=== PATIENT | female | born 1955 | race Hispanic/Latino ===

== ENCOUNTER 2018-09-11 18:07 | Emergency (ER) | payer OTHER ==
[~2018-09-11 18:07] MED LIST: LEVO500T2 PO; OMEP20CA10 PO
[2018-09-11 18:44] LABS: APPEARANCE,URINE Clear (CLEAR); BILIRUBIN,URINE Moderate (NEGATIVE); COLOR,URINE Dark Yellow (YELLOW); GLUCOSE, URINE (UA) Negative (NEGATIVE); KETONES,URINE 40 mg/dL (NEGATIVE); LEUKOCYTE ESTERASE ,URINE Moderate (NEGATIVE); NITRATE,URINE Negative (NEGATIVE); OCCULT BLOOD,URINE Negative (NEGATIVE); PROTEIN,URINE POS 1+ mg/dL (NEGATIVE)
[2018-09-11 18:57] LABS: BASOPHILS % (AUTO) 0.5 % (0.0-5.0); EOSINOPHILS % (AUTO) 1.6 % (0.0-8.0); HEMATOCRIT 34.1 % (36-48); LYMPHOCYTES % (AUTO) 23.3 % (21.0-51.0); MEAN CORPUSCULAR HEMOGLOBIN 42.8 pg (27.0-33.0); MEAN CORPUSCULAR HGB CONC 34.9 g/dL (32.0-36.0); MEAN CORPUSCULAR VOLUME 122.7 fL (79-99); MONOCYTES % (AUTO) 1.8 % (3.0-13.0); NEUTROPHILS % (AUTO) 72.8 % (40.0-77.0); NUCLEATED RED BLOOD CELLS 0.1 % (0.0-0.19); PLATELET COUNT (AUTO) 97 K/uL (130-400); RED BLOOD CELL COUNT(AUTO) 2.78 MIL/uL (4.00-5.50); WHITE BLOOD COUNT (AUTO) 5.8 K/uL (4.8-10.8)
[2018-09-11] MEDS ORDERED: ONDANSETRON HCL 4 MG/2 ML VIAL ONE (19:06)
[2018-09-11] MEDS ORDERED: SODIUM CHLORIDE 0.9% 1000ML 1,000 ML IV ONE (19:06)
[2018-09-11 19:08] LABS: CREATININE 0.7 mg/dL (0.5-1.5); POTASSIUM 3.6 mmol/L (3.5-5.1)
[2018-09-11 19:13] LABS: ALBUMIN 3.7 g/dL (3.5-5.0); BILIRUBIN,TOTAL 0.7 mg/dL (0.2-1.0); TOTAL PROTEIN, SERUM 7.8 g/dL (6.0-8.3)
[2018-09-11 19:16] LABS: BACTERIA,URINE Rare /HPF (None Seen); MUCUS,URINE Many LPF (None Seen); RBC,URINE None Seen /HPF (0-1); WBC,URINE 26-50 /HPF (0-1)
[2018-09-11 20:01] LABS: PLATELET MORPHOLOGY COMMENT SLIGHTLY DECREASED
[2018-09-11] MEDS ORDERED: LEVOFLOXACIN 500 MG TABLET ONE (20:39)
== END 2018-09-11 21:02 | disposition home or self-care (01) ==
LOC: EDH 18:07
DX: K52.9 Noninfective gastroenteritis and colitis, unspecified (principal); N39.0 Urinary tract infection, site not specified; D69.6 Thrombocytopenia, unspecified; M54.2 Cervicalgia
CPT/HCPCS: 36415; 72040; 80053; 81001; 82150; 82550; 83690; 84484; 85025; 87088; 87804 ×2; 93005; 96361; 96374; 99285; J2405; J7030

== ENCOUNTER 2018-12-18 02:56 | Inpatient (IN) | payer SELFPAY ==
[2018-12-18] VITALS (15 sets, daily range): BP systolic 103–143; BP diastolic 53–74
[~2018-12-18] VITALS: Ht 152.4 cm; Wt 76.1 kg
[~2018-12-18 02:56] MED LIST changes: +OMEP-50 PO; -OMEP20CA10 PO
[2018-12-18] MEDS ORDERED: ASPIRIN 325 MG TABLET ONE (03:31)
[2018-12-18 03:38] LABS: APPEARANCE,URINE Clear (CLEAR); BILIRUBIN,URINE Negative (NEGATIVE); COLOR,URINE Yellow (YELLOW); GLUCOSE, URINE (UA) Negative (NEGATIVE); KETONES,URINE 15 mg/dL (NEGATIVE); LEUKOCYTE ESTERASE ,URINE Small (NEGATIVE); NITRATE,URINE Positive (NEGATIVE); OCCULT BLOOD,URINE Negative (NEGATIVE); PH,URINE >=9.0 (5.0-8.0); PROTEIN,URINE Negative (NEGATIVE)
[2018-12-18 03:44] LABS: BACTERIA,URINE Many /HPF (None Seen); MUCUS,URINE None Seen LPF (None Seen); RBC,URINE 0-1 /HPF (0-1); SQUAMOUS EPITHELIAL CELL,UR None Seen /HPF (0-2)
[2018-12-18] MEDS ORDERED: ONDANSETRON HCL 4 MG/2 ML VIAL ONE (04:00)
[2018-12-18 04:10] LABS: CREATININE 0.8 mg/dL (0.5-1.5); POTASSIUM 3.4 mmol/L (3.5-5.1)
[2018-12-18 04:15] LABS: BILIRUBIN,TOTAL 1.6 mg/dL (0.2-1.0); TOTAL PROTEIN, SERUM 7.3 g/dL (6.0-8.3)
[2018-12-18 04:16] LABS: INR 1.02 (0.85-1.15); PARTIAL THROMBOPLASTIN TIME 24.6 SEC (26.3-35.5); PROTHROMBIN TIME 10.7 SEC (9.6-11.6)
[2018-12-18 04:19] LABS: B-TYPE NATRIURETIC PEPTIDE 44 pg/mL (0-100)
[2018-12-18 04:23] LABS: BASOPHILS % (AUTO) 0.2 % (0.0-5.0); EOSINOPHILS % (AUTO) 2.9 % (0.0-8.0); HEMATOCRIT 23.2 % (36-48); LYMPHOCYTES % (AUTO) 43.5 % (21.0-51.0); MEAN CORPUSCULAR HEMOGLOBIN 43.6 pg (27.0-33.0); MEAN CORPUSCULAR HGB CONC 34.1 g/dL (32.0-36.0); MEAN CORPUSCULAR VOLUME 127.7 fL (79-99); MONOCYTES % (AUTO) 3.3 % (3.0-13.0); NEUTROPHILS % (AUTO) 50.1 % (40.0-77.0); NUCLEATED RED BLOOD CELLS 0.1 % (0.0-0.19); PLATELET COUNT (AUTO) 148 K/uL (130-400); RED BLOOD CELL COUNT(AUTO) 1.82 MIL/uL (4.00-5.50); WHITE BLOOD COUNT (AUTO) 6.3 K/uL (4.8-10.8)
[2018-12-18] MEDS ORDERED: CEFTRIAXONE SODIUM 1 GM ONE (04:34)
[2018-12-18] MEDS ORDERED: SODIUM CHLORIDE 0.9% 100 ML IV ONE (04:35)
[2018-12-18 04:39] LABS: RETICULOCYTE % (AUTO) 2.63 % (0.42-2.23)
[2018-12-18] MEDS ORDERED: ONDANSETRON HCL 4 MG/2 ML VIAL IV PRN (05:00)
[2018-12-18] MEDS ORDERED: ACETAMINOPHEN 325 MG TAB PO PRN ×2 (05:00)
[2018-12-18] MEDS: CEFTRIAXONE SODIUM 1 GM IVP SCH (05:00)
[2018-12-18] MEDS ORDERED: POTASSIUM CHLORIDE 10MEQ/100ML 100 ML IV PRN (05:00)
[2018-12-18] MEDS ORDERED: LACTULOSE 20 GM/30 ML UDCUP PO PRN (05:00)
[2018-12-18] MEDS: DEXTROSE 5%-WATER 1,000 ML IV SCH ×2 (05:00→18:08)
[2018-12-18 05:22] LABS: CHOLESTEROL 120 mg/dL (<200); HDL CHOLESTEROL 38 mg/dL (35-85); LDL DIRECT 69 mg/dL (0-99); TRIGLYCERIDES 101 mg/dL (30-200)
[2018-12-18 05:25] LABS: FERRITIN 213 ng/mL (15-150); HEMOGLOBIN A1C 5.6 % (4.0-6.0); IRON, SERUM 71 mcg/dL (50-170)
[2018-12-18] MEDS: ASPIRIN 81MG TAB.CHEW PO SCH (09:00)
[2018-12-18 11:08] LABS: CREATINE KINASE, TOTAL 30 U/L (21-232); MYOGLOBIN 30 ng/mL (10-92); TROPONIN I < 0.04 ng/mL (0.00-0.06)
[2018-12-18] MEDS ORDERED: ERYTHROMYCIN LACTOBIONATE 250 MG in SODIUM CHLORIDE 0.9% 100 ML IV SCH (12:00)
[2018-12-18] MEDS: MORPHINE SULFATE 2 MG/ML 1ML SYG IV PRN (13:00)
--- NOTE | 2018-12-18 13:30 | NUR ---
NOTE OUT OF ROOM FOR EGD AT THIS TIME.
[2018-12-18] MEDS ORDERED: PROPOFOL 10 MG/ML 20ML VIAL IV ONE (14:17)
[2018-12-18] MEDS: METOPROLOL TARTRATE 25 MG TAB PO SCH ×2 (16:05→19:52)
[2018-12-18] MEDS: FAMOTIDINE/PF 20 MG/2 ML VIAL IV SCH ×2 (16:05→19:41)
[2018-12-18] MEDS ORDERED: LACTULOSE 20 GM/30 ML UDCUP PO SCH (16:30)
[2018-12-18] MEDS ORDERED: MAGNESIUM CITRATE 296 ML SOLUTION PO SCH (16:30)
[2018-12-18 16:43] LABS: CREATINE KINASE, TOTAL 29 U/L (21-232); MYOGLOBIN 31 ng/mL (10-92); TROPONIN I < 0.04 ng/mL (0.00-0.06)
[2018-12-18] MEDS ORDERED: PEG 3350/NA SULF,BICARB,CL/KCL 4000 ML SOLN PO SCH (17:00)
--- NOTE | 2018-12-18 18:30 | NUR ---
NOTE CAME BACK FROM PROCEDURE EARLIER AND HAS REMAINED STABLE ADN WITHOUT DISTRESS OR PAIN. WAS MEDICATED WITH MORPHINE PRIOR TO LEAVING FOR EGD. FAMILY IS AT HER SIDE. WAS STARTED ON PREP FOR COLONOSCOPY IN AM. WE HAVE CALLED DR JONES A CONSULT FOR POSSIBLE SURGERY. JUST SPOKE TO HIM AND HE WILL BE HERE IN AM TO SEE HER. WILL KEEP HER NPO EVEN AFTER SHE COMES BACK FROM COLONOSCOPY SHE IS SCHEDULED FOR.
[2018-12-18] MEDS: ATORVASTATIN CALCIUM 20 MG TABLET PO SCH (19:52)
--- NOTE | 2018-12-18 20:00 | NUR ---
ASSESSMENT BOWEL PREP PATIENT DRINKING [place] PREP SLOWLY, ENCOURAGE PATIENT AND FAMILY TO DRINK BOWEL PREP IN ORDER TO BE READY , IF NOT CLEAR COLONOSCOPY WILL NOT BE PERFORMED, PATIENT AND FAMILY VERBALIZE UNDERSTANDING VIA TEACH BACK
--- NOTE | 2018-12-18 21:05 | NUR ---
ENEMA TAP WATER ENEMA GIVEN ORDERED, TOLERATED WELL, RETURN WATER BROWNISH STOOL WITH BROWN STOOL PARTICLES
[2018-12-18 22:47] LABS: CREATINE KINASE, TOTAL 31 U/L (21-232); MYOGLOBIN 33 ng/mL (10-92); TROPONIN I < 0.04 ng/mL (0.00-0.06)
[2018-12-19 04:00] VITALS: BP 111/55
--- NOTE | 2018-12-19 04:55 | NUR ---
REFUSAL PATIENT REFUSING ENEMA, PATIENT REFUSING COLONOSCOPY FOR TODAY, EXPLAINED TO PATIENT IMPORTANCE, CONTINUE TO REFUSE ENEMA AND COLONOSCOPY, REFUSAL OBTAINED AND SIGNED
[2018-12-19 05:42] LABS: MEAN CORPUSCULAR HEMOGLOBIN 45.5 pg (27.0-33.0); MEAN CORPUSCULAR HGB CONC 35.2 g/dL (32.0-36.0); MEAN CORPUSCULAR VOLUME 129.3 fL (79-99); NUCLEATED RED BLOOD CELLS 0.1 % (0.0-0.19); PLATELET COUNT (AUTO) 87 K/uL (130-400); RED BLOOD CELL COUNT(AUTO) 1.56 MIL/uL (4.00-5.50); RED CELL DISTRIBUTION WIDTH 22.8 % (11.0-15.5); WHITE BLOOD COUNT (AUTO) 7.3 K/uL (4.8-10.8)
[2018-12-19 05:46] LABS: CREATININE 0.7 mg/dL (0.5-1.5); POTASSIUM 3.5 mmol/L (3.5-5.1)
[2018-12-19 05:48] LABS: HEMATOCRIT 20.2 % (36-48)
[2018-12-19] MEDS: CEFTRIAXONE SODIUM 1 GM IVP SCH (05:51)
[2018-12-19 06:03] LABS: EOSINOPHILS % (MANUAL) 1 % (1-6); LYMPHOCYTES % (MANUAL) 28 % (22-44); MAN.DIFF COMMENT-IMPRESSION MANUAL DIFFERENTIAL; MONOCYTES % (MANUAL) 3 % (2-9); SEGMENTED NEUTROPHILS % 68 % (40-70)
[2018-12-19 06:05] LABS: PLATELET MORPHOLOGY COMMENT DECREASED
--- NOTE | 2018-12-19 06:30 | NUR ---
REFUSAL MD INFORMED DR. QUIJANO PATIENT REFUSES COLONOSCOPY AND REFUSAL SIGN
[2018-12-19] MEDS: DEXTROSE 5%-WATER 1,000 ML IV SCH ×2 (07:40→22:32)
--- NOTE | 2018-12-19 07:45 | NUR ---
NOTE AAOX3. DENIES PAIN OR DISCOMFORT AT THIS TIME. NO SOB OR DISTRESS NOTED OR REPORTED. REMAINS NPO. SHE WILL HAVE HIDA SCAN DONE TODAY. SHE REFUSED TO COMPLETE PREP FOR COLONOSCOPY SCHEDULED FOR TODAY SO NIGHT NURSE CALLED DR QUIJANO AND INFORMED HIM. HGB 7.1 THIS AM.
[2018-12-19] MEDS ORDERED: LORAZEPAM 2 MG/ML 1 ML VIAL IM SCH (08:15)
[2018-12-19] MEDS ORDERED: MAGNESIUM 2GM PREMIX 50ML 50 ML IV PRN (08:15)
[2018-12-19 08:26] VITALS: BP 105/58
[2018-12-19 08:57] LABS: HEMOGLOBIN A1C 5.5 % (4.0-6.0)
[2018-12-19] MEDS ORDERED: PANTOPRAZOLE SODIUM 40 MG TABLET.DR PO SCH (09:00)
[2018-12-19] MEDS: CYANOCOBALAMIN (VITAMIN B-12) 1000 MCG/ML 1ML VIAL IM SCH (09:00)
[2018-12-19] MEDS ORDERED: CYANOCOBALAMIN (VITAMIN B-12) 1000 MCG/ML 1ML VIAL IM SCH (09:00)
[2018-12-19] MEDS: ASPIRIN 81MG TAB.CHEW PO SCH (09:00)
[2018-12-19 09:04] LABS: ALBUMIN 3.3 g/dL (3.5-5.0); BILIRUBIN,TOTAL 2.7 mg/dL (0.2-1.0); CREATININE 0.7 mg/dL (0.5-1.5); POTASSIUM 4.4 mmol/L (3.5-5.1); TOTAL PROTEIN, SERUM 6.6 g/dL (6.0-8.3)
[2018-12-19] MEDS: METOPROLOL TARTRATE 25 MG TAB PO SCH ×2 (09:38→21:00)
[2018-12-19] MEDS: FOLIC ACID 1 MG TABLET PO SCH (09:38)
--- NOTE | 2018-12-19 10:15 | NUR ---
NOTE DR JONES CAME IN AND SPOKE TO PATIENT. HE WAS UNDER IMPRESSION THAT PATIENT WAS HAVING COLONOSCOPY TODAY BUT I INFORMED HIM THAT SHE HAD REFUSED TO COMPLETE THE PREP SO IT HAD BEEN CANCELLED. DR JONES TOLD ME TO INFORM THE PATIENT THAT WITHOUT KNOWING WHERE BLEEDING OR LOSS OF BLOOD IS COMING FROM HE WOULD NOT DO SURGERY ON HER.
--- NOTE | 2018-12-19 11:00 | NUR ---
NOTE INFORMED PATIENT AND FAMILY THAT WAS PRESENT ABOUT WHAT DR JONES HAD SAID ABOUT NOT DOING SURGERY ON HER IF SHE REFUSES TO UNDERGO COLONOSCOPY TO SEE IF THERE IS ANY TUMORS OR LESIONS OR BLEEDS IN THE COLON THAT COULD EXPLAIN HER DROP IN H/H. SHE IS VERY ANXIOUS AND AFTER LISTENING AND BARGAINING ABOUT DRINKING LESS OF THE PREP AND CLARIFYING THAT SHE NEEDS TO COMPLETE THE WHOLE THING ORDERED SHE FINALLY AGREED TO UNDERGO THE PROCEDURE. I HAVE PAGED DR QUIJANO TO INFORM HIM BUT HAS NOT RETURNED MY CALL.
[2018-12-19 11:52] VITALS: BP 107/53
--- NOTE | 2018-12-19 12:15 | NUR ---
NOTE OUT OF ROOM FOR HIDA SCAN AT THIS TIME. FAMILY PRESENT WHEN SHE LEFT.
[2018-12-19] MEDS: MORPHINE SULFATE 2 MG/ML 1ML SYG IV PRN (13:43)
--- NOTE | 2018-12-19 14:30 | NUR ---
NOTE PATIENT IS BACK FROM HIDA SCAN. SHE HAS AGREED TO HAVE COLONOSCOPY TOMORROW. DR QUIJANO CALLED BACK EARLIER AND HE SAID TO SCHEDULE HER FOR TOMORROW AND RESTART PREP.
[2018-12-19] MEDS ORDERED: PEG 3350/NA SULF,BICARB,CL/KCL 4000 ML SOLN PO SCH (15:15)
[2018-12-19] MEDS ORDERED: LACTULOSE 20 GM/30 ML UDCUP PO SCH (15:15)
[2018-12-19] MEDS ORDERED: MAGNESIUM CITRATE 296 ML SOLUTION PO SCH (15:15)
[2018-12-19 16:23] VITALS: BP 106/58
--- NOTE | 2018-12-19 17:40 | NUR ---
cm note met with patient and states resides at home with adult grandkids. , independent with ambulation and adls. no dme. provided with list of low income clinics in the area, and rx assist. [facility] or deirdre assist. pt verbalizes understanding. dc plan is back home. Addendum: 12/19/18 at 1743 by LISHA CARTER CM Amended: Links added.
[2018-12-19 19:27] VITALS: BP 107/50
[2018-12-19] MEDS: ATORVASTATIN CALCIUM 20 MG TABLET PO SCH (21:44)
[2018-12-19 23:24] VITALS: BP 120/70
[2018-12-20] VITALS (11 sets, daily range): BP systolic 102–127; BP diastolic 53–71
[2018-12-20] MEDS: CEFTRIAXONE SODIUM 1 GM IVP SCH (05:20)
[2018-12-20] MEDS: ASPIRIN 81MG TAB.CHEW PO SCH (09:00)
[2018-12-20] MEDS: METOPROLOL TARTRATE 25 MG TAB PO SCH ×2 (09:00→20:59)
[2018-12-20] MEDS: FOLIC ACID 1 MG TABLET PO SCH (09:00)
[2018-12-20 09:23] LABS: MEAN CORPUSCULAR HEMOGLOBIN 44.7 pg (27.0-33.0); MEAN CORPUSCULAR HGB CONC 34.5 g/dL (32.0-36.0); MEAN CORPUSCULAR VOLUME 129.5 fL (79-99); PLATELET COUNT (AUTO) 96 K/uL (130-400); RED BLOOD CELL COUNT(AUTO) 1.58 MIL/uL (4.00-5.50); RED CELL DISTRIBUTION WIDTH 22.3 % (11.0-15.5); WHITE BLOOD COUNT (AUTO) 10.5 K/uL (4.8-10.8)
[2018-12-20 09:39] LABS: ALBUMIN 3.1 g/dL (3.5-5.0); BILIRUBIN,TOTAL 2.1 mg/dL (0.2-1.0); CREATININE 0.6 mg/dL (0.5-1.5); TOTAL PROTEIN, SERUM 6.5 g/dL (6.0-8.3)
[2018-12-20 09:42] LABS: POTASSIUM 2.9 mmol/L (3.5-5.1)
[2018-12-20 09:43] LABS: HEMATOCRIT 20.5 % (36-48)
[2018-12-20] MEDS ORDERED: COMPOUND IV MISC 1 EACH IVSOLN MISC PRN (10:15)
[2018-12-20] MEDS: CYANOCOBALAMIN (VITAMIN B-12) 1000 MCG/ML 1ML VIAL IM SCH (10:25)
[2018-12-20] MEDS: LIDOCAINE HCL-MPF 1% 2ML VIAL IV PRN (10:26)
[2018-12-20] MEDS: POTASSIUM CHLORIDE 20MEQ/100ML 100 ML IV PRN (10:26)
[2018-12-20] MEDS ORDERED: POTASSIUM CHLORIDE 10% ELIXIR 20 MEQ/15 ML UDCUP PO SCH (11:00)
[2018-12-20] MEDS ORDERED: IRON SUCROSE COMPLEX 100 MG in SODIUM CHLORIDE 0.9% 50 ML IV SCH (12:00)
[2018-12-20] MEDS: DEXTROSE 5%-WATER 1,000 ML IV SCH ×2 (12:16→21:03)
[2018-12-20] MEDS ORDERED: EPOETIN ALFA 10,000 UNIT/ML VIAL SQ SCH (13:45)
[2018-12-20] MEDS ORDERED: FERROUS SULFATE 325 MG TABLET.DR PO SCH (14:00)
--- NOTE | 2018-12-20 16:14 | NUR ---
Pt has been NPO throughout day. Rec'd message from Dr. Reyna that pt will have her colonoscopy done today at 5:30 pm. Notified Sherrie of GI lab.
--- NOTE | 2018-12-20 17:25 | NUR ---
Pt wheeled to GI lab by Sania Balderas, for planned colonoscopy. Repeat potassium was 3.1 after administration of 1st bag kcl. SANIA Balderas, aware of results, states 2nd bag could be given after pt returns. Addendum: 12/20/18 at 1743 by SUZE TORRE RN RN Pt in stable condition at time of transfer; family at side.
[2018-12-20] MEDS ORDERED: PROPOFOL 10 MG/ML 20ML VIAL IV ONE (18:13)
[2018-12-20] MEDS ORDERED: LIDOCAINE HCL 2% 20ML ONE (18:15)
[2018-12-20] MEDS ORDERED: SODIUM CHLORIDE 0.9% 10 ML VIAL ONE (18:34)
[2018-12-20] MEDS ORDERED: PHENYLEPHRINE HCL 10 MG/ML 1ML VIAL IV ONE (18:34)
[2018-12-20] MEDS: ATORVASTATIN CALCIUM 20 MG TABLET PO SCH (20:59)
[2018-12-21] VITALS: BP 96/50
[2018-12-21] MEDS: POTASSIUM CHLORIDE 20MEQ/100ML 100 ML IV PRN ×3 (00:07→09:27)
[2018-12-21] MEDS: LIDOCAINE HCL-MPF 1% 2ML VIAL IV PRN ×3 (00:08→09:26)
[2018-12-21 04:00] VITALS: BP 101/54
[2018-12-21 04:24] LABS: MEAN CORPUSCULAR HGB CONC 34.6 g/dL (32.0-36.0); MEAN CORPUSCULAR VOLUME 132.9 fL (79-99); NUCLEATED RED BLOOD CELLS 0.1 % (0.0-0.19); PLATELET COUNT (AUTO) 98 K/uL (130-400); RED BLOOD CELL COUNT(AUTO) 1.37 MIL/uL (4.00-5.50); RED CELL DISTRIBUTION WIDTH 22.3 % (11.0-15.5); WHITE BLOOD COUNT (AUTO) 9.4 K/uL (4.8-10.8)
[2018-12-21 04:28] LABS: HEMATOCRIT 18.2 % (36-48)
[2018-12-21 04:36] LABS: CREATININE 0.6 mg/dL (0.5-1.5)
[2018-12-21 04:42] LABS: POTASSIUM 2.8 mmol/L (3.5-5.1)
[2018-12-21] MEDS: CEFTRIAXONE SODIUM 1 GM IVP SCH (05:09)
[2018-12-21 07:30] VITALS: BP 102/51
[2018-12-21] MEDS: FOLIC ACID 1 MG TABLET PO SCH (08:57)
[2018-12-21] MEDS: ASPIRIN 81MG TAB.CHEW PO SCH (08:57)
[2018-12-21] MEDS: METOPROLOL TARTRATE 25 MG TAB PO SCH ×2 (09:25→21:10)
[2018-12-21] MEDS: HYDROCORTISONE 25 MG SUPPOSITORY PR SCH ×2 (09:25→21:09)
[2018-12-21] MEDS: CYANOCOBALAMIN (VITAMIN B-12) 1000 MCG/ML 1ML VIAL IM SCH (09:25)
[2018-12-21] MEDS: IRON SUCROSE COMPLEX 100 MG in SODIUM CHLORIDE 0.9% 50 ML IV SCH (09:26)
[2018-12-21 11:00] VITALS: BP_SYST 105; BP_SYST 116; BP_DIAS 54; BP_DIAS 64
[2018-12-21] MEDS: DEXTROSE 5%-WATER 1,000 ML IV SCH (13:00)
[2018-12-21] MEDS ORDERED: FUROSEMIDE 10 MG/ML 4ML VIAL IV SCH (15:20)
[2018-12-21 16:00] VITALS: BP 116/64
[2018-12-21] MEDS ORDERED: FUROSEMIDE 10 MG/ML 2ML VIAL IV SCH ×2 (16:15)
[2018-12-21 20:00] VITALS: BP 112/61
[2018-12-21] MEDS: ATORVASTATIN CALCIUM 20 MG TABLET PO SCH (21:10)
[2018-12-21 23:03] LABS: HEMATOCRIT 29.6 % (36-48)
--- NOTE | 2018-12-21 23:30 | NUR ---
Repeat H/H reported to on -call Hospitalist (Sanjeev Parker ) - no new order.
[2018-12-22] VITALS: BP 113/61
[2018-12-22 04:00] VITALS: BP 119/56
[2018-12-22] MEDS: CEFTRIAXONE SODIUM 1 GM IVP SCH (04:24)
[2018-12-22 05:12] LABS: BILIRUBIN,TOTAL 1.8 mg/dL (0.2-1.0); CREATININE 0.6 mg/dL (0.5-1.5); POTASSIUM 4.3 mmol/L (3.5-5.1)
[2018-12-22 05:26] LABS: HEMATOCRIT 28.9 % (36-48); MEAN CORPUSCULAR HEMOGLOBIN 39.6 pg (27.0-33.0); MEAN CORPUSCULAR HGB CONC 35.1 g/dL (32.0-36.0); MEAN CORPUSCULAR VOLUME 112.8 fL (79-99); NUCLEATED RED BLOOD CELLS 0.3 % (0.0-0.19); PLATELET COUNT (AUTO) 36 K/uL (130-400); RED BLOOD CELL COUNT(AUTO) 2.56 MIL/uL (4.00-5.50); RED CELL DISTRIBUTION WIDTH 32.1 % (11.0-15.5)
[2018-12-22 05:56] LABS: BAND NEUTROPHILS % (MANUAL) 3 % (0-2); EOSINOPHILS % (MANUAL) 3 % (1-6); LYMPHOCYTES % (MANUAL) 22 % (22-44); MAN.DIFF COMMENT-IMPRESSION MANUAL DIFFERENTIAL; MONOCYTES % (MANUAL) 8 % (2-9); SEGMENTED NEUTROPHILS % 64 % (40-70)
[2018-12-22 07:53] VITALS: BP 111/56
[2018-12-22] MEDS: FOLIC ACID 1 MG TABLET PO SCH (09:00)
[2018-12-22] MEDS: ASPIRIN 81MG TAB.CHEW PO SCH (09:00)
[2018-12-22] MEDS: HYDROCORTISONE 25 MG SUPPOSITORY PR SCH ×2 (10:51→21:32)
[2018-12-22] MEDS: METOPROLOL TARTRATE 25 MG TAB PO SCH ×2 (10:51→21:32)
[2018-12-22] MEDS: IRON SUCROSE COMPLEX 100 MG in SODIUM CHLORIDE 0.9% 50 ML IV SCH (10:51)
[2018-12-22] MEDS: CYANOCOBALAMIN (VITAMIN B-12) 1000 MCG/ML 1ML VIAL IM SCH (10:52)
[2018-12-22] MEDS ORDERED: LACTATED RINGERS 1000ML 1,000 ML IV ONE (11:13)
[2018-12-22] MEDS ORDERED: HEPARIN SODIUM 1000UNIT/ML 10ML VIAL ONE (11:38)
--- NOTE | 2018-12-22 11:40 | NUR ---
CONSULT: DR. JONES SPOKE TO PATIENT REGARDING LOW PLT COUNT, WILL RESCHEDULE SURGERY FOR 12/23/18
[2018-12-22 16:00] VITALS: BP 115/67
[2018-12-22 20:00] VITALS: BP 123/62
[2018-12-22] MEDS: ATORVASTATIN CALCIUM 20 MG TABLET PO SCH (21:32)
[2018-12-22 23:36] VITALS: BP 109/69
[2018-12-23] VITALS (27 sets, daily range): BP systolic 92–124; BP diastolic 31–71
[2018-12-23 04:10] LABS: BASOPHILS % (AUTO) 0.1 % (0.0-5.0); EOSINOPHILS % (AUTO) 3.5 % (0.0-8.0); HEMATOCRIT 27.5 % (36-48); MEAN CORPUSCULAR HEMOGLOBIN 39.2 pg (27.0-33.0); MEAN CORPUSCULAR HGB CONC 34.5 g/dL (32.0-36.0); MEAN CORPUSCULAR VOLUME 113.6 fL (79-99); NEUTROPHILS % (AUTO) 66.4 % (40.0-77.0); NUCLEATED RED BLOOD CELLS 0.1 % (0.0-0.19); PLATELET COUNT (AUTO) 173 K/uL (130-400); RED BLOOD CELL COUNT(AUTO) 2.42 MIL/uL (4.00-5.50); RED CELL DISTRIBUTION WIDTH 31.4 % (11.0-15.5); WHITE BLOOD COUNT (AUTO) 8.4 K/uL (4.8-10.8)
[2018-12-23 04:26] LABS: CREATININE 0.7 mg/dL (0.5-1.5); POTASSIUM 3.2 mmol/L (3.5-5.1)
[2018-12-23] MEDS: POTASSIUM CHLORIDE 20MEQ/100ML 100 ML IV PRN (04:52)
[2018-12-23] MEDS: CEFTRIAXONE SODIUM 1 GM IVP SCH (04:52)
[2018-12-23] MEDS: LIDOCAINE HCL-MPF 1% 2ML VIAL IV PRN (04:53)
[2018-12-23 08:52] LABS: BASOPHILS % (AUTO) 0.2 % (0.0-5.0); EOSINOPHILS % (AUTO) 2.9 % (0.0-8.0); HEMATOCRIT 28.8 % (36-48); MEAN CORPUSCULAR HEMOGLOBIN 38.5 pg (27.0-33.0); MEAN CORPUSCULAR HGB CONC 33.7 g/dL (32.0-36.0); MEAN CORPUSCULAR VOLUME 114.2 fL (79-99); MONOCYTES % (AUTO) 11.2 % (3.0-13.0); NEUTROPHILS % (AUTO) 67.7 % (40.0-77.0); NUCLEATED RED BLOOD CELLS 0.1 % (0.0-0.19); PLATELET COUNT (AUTO) 181 K/uL (130-400); RED BLOOD CELL COUNT(AUTO) 2.52 MIL/uL (4.00-5.50); RED CELL DISTRIBUTION WIDTH 30.9 % (11.0-15.5); WHITE BLOOD COUNT (AUTO) 7.3 K/uL (4.8-10.8)
[2018-12-23] MEDS: HYDROCORTISONE 25 MG SUPPOSITORY PR SCH ×2 (09:00→21:53)
[2018-12-23] MEDS: FOLIC ACID 1 MG TABLET PO SCH (09:00)
[2018-12-23] MEDS: ASPIRIN 81MG TAB.CHEW PO SCH (09:00)
[2018-12-23] MEDS: METOPROLOL TARTRATE 25 MG TAB PO SCH ×2 (09:53→21:18)
[2018-12-23] MEDS: CYANOCOBALAMIN (VITAMIN B-12) 1000 MCG/ML 1ML VIAL IM SCH (09:54)
[2018-12-23] MEDS: IRON SUCROSE COMPLEX 100 MG in SODIUM CHLORIDE 0.9% 50 ML IV SCH (09:54)
[2018-12-23] MEDS ORDERED: LACTATED RINGERS 1000ML 1,000 ML IV ONE (12:26)
[2018-12-23] MEDS ORDERED: HEPARIN SODIUM 1000UNIT/ML 10ML VIAL ONE (12:30)
[2018-12-23] MEDS ORDERED: PROPOFOL 10 MG/ML 20ML VIAL IV ONE (12:58)
[2018-12-23] MEDS ORDERED: FENTANYL CITRATE PF 50 MCG/1 ML 2ML VIAL ONE (12:59)
[2018-12-23] MEDS ORDERED: LIDOCAINE PF 2% 5ML ABBOJECT ONE (13:00)
[2018-12-23] MEDS ORDERED: GLYCOPYRROLATE 1 MG/5 ML SYRINGE ONE (13:56)
[2018-12-23] MEDS ORDERED: NEOSTIGMINE 5MG/5ML SYR IV ONE (13:56)
[2018-12-23] MEDS ORDERED: PHENYLEPHRINE HCL 10 MG/ML 1ML VIAL IV ONE (14:22)
[2018-12-23] MEDS ORDERED: ONDANSETRON HCL 4 MG/2 ML VIAL ONE (14:37)
[2018-12-23] MEDS ORDERED: SODIUM CHLORIDE 0.9% 1000ML 1,000 ML IV SCH (14:59)
[2018-12-23 15:18] LABS: BASOPHILS % (AUTO) 0.1 % (0.0-5.0); EOSINOPHILS % (AUTO) 4.1 % (0.0-8.0); HEMATOCRIT 29.7 % (36-48); LYMPHOCYTES % (AUTO) 25.7 % (21.0-51.0); MEAN CORPUSCULAR HEMOGLOBIN 38.3 pg (27.0-33.0); MEAN CORPUSCULAR HGB CONC 33.6 g/dL (32.0-36.0); MEAN CORPUSCULAR VOLUME 113.9 fL (79-99); MONOCYTES % (AUTO) 9.9 % (3.0-13.0); NEUTROPHILS % (AUTO) 60.2 % (40.0-77.0); NUCLEATED RED BLOOD CELLS 0.2 % (0.0-0.19); PLATELET COUNT (AUTO) 209 K/uL (130-400); RED BLOOD CELL COUNT(AUTO) 2.61 MIL/uL (4.00-5.50); WHITE BLOOD COUNT (AUTO) 9.3 K/uL (4.8-10.8)
[2018-12-23] MEDS ORDERED: MEPERIDINE-PF 25 MG/ML SYG ONE (15:35)
[2018-12-23] MEDS: ATORVASTATIN CALCIUM 20 MG TABLET PO SCH (21:18)
[2018-12-24 04:00] VITALS: BP 114/57
[2018-12-24] MEDS: CEFTRIAXONE SODIUM 1 GM IVP SCH (04:38)
[2018-12-24 04:42] LABS: MEAN CORPUSCULAR HEMOGLOBIN 38.2 pg (27.0-33.0); MEAN CORPUSCULAR HGB CONC 33.8 g/dL (32.0-36.0); PLATELET COUNT (AUTO) 258 K/uL (130-400); RED BLOOD CELL COUNT(AUTO) 2.48 MIL/uL (4.00-5.50); RED CELL DISTRIBUTION WIDTH 30.1 % (11.0-15.5)
[2018-12-24 05:03] LABS: CREATININE 0.6 mg/dL (0.5-1.5); POTASSIUM 3.7 mmol/L (3.5-5.1)
[2018-12-24 05:45] LABS: EOSINOPHILS % (MANUAL) 1 % (1-6); LYMPHOCYTES % (MANUAL) 15 % (22-44); MAN.DIFF COMMENT-IMPRESSION MANUAL DIFFERENTIAL; MONOCYTES % (MANUAL) 4 % (2-9); PLATELET MORPHOLOGY COMMENT ADEQUATE; SEGMENTED NEUTROPHILS % 80 % (40-70)
[2018-12-24 08:00] VITALS: BP 123/58
[2018-12-24] MEDS: CYANOCOBALAMIN (VITAMIN B-12) 1000 MCG/ML 1ML VIAL IM SCH (08:57)
[2018-12-24] MEDS: ASPIRIN 81MG TAB.CHEW PO SCH (08:57)
[2018-12-24] MEDS: FOLIC ACID 1 MG TABLET PO SCH (08:57)
[2018-12-24] MEDS: HYDROCORTISONE 25 MG SUPPOSITORY PR SCH (08:57)
[2018-12-24] MEDS: METOPROLOL TARTRATE 25 MG TAB PO SCH (08:57)
[2018-12-24] MEDS: IRON SUCROSE COMPLEX 100 MG in SODIUM CHLORIDE 0.9% 50 ML IV SCH (08:57)
[2018-12-24] MEDS ORDERED: IBUP-2070 PO (10:16)
[2018-12-24] MEDS ORDERED: ASPI-1005 PO (10:16)
[2018-12-24] MEDS ORDERED: ATOR20TA65 PO (10:16)
[2018-12-24] MEDS ORDERED: LEVO500T2 PO (10:16)
[2018-12-24 11:53] VITALS: BP 111/64
--- NOTE | 2018-12-24 17:10 | NUR ---
PT D/C W TEACH BACK TO PT AND DAUGHTER SUCCESSFULLY IV REMOVED, CATHETER INTACT LATISHA DRAIN REMOVED, CATHETER TIP INTACT
== END 2018-12-24 17:12 | disposition home or self-care (01) | DRG 418 ==
LOC: EDH 02:56 → OBSVTOIN 02:57 → EDHIP 02:57 → 4BH 08:42
PROVIDERS: ADMIT Family Medicine; ATTEND Family Medicine
PROC: 0DB98ZX Excision of Duodenum, Via Natural or Artificial Opening Endoscopic, Diagnostic (ICD-10-PCS; 2018-12-18)
PROC: 0DB68ZX Excision of Stomach, Via Natural or Artificial Opening Endoscopic, Diagnostic (ICD-10-PCS; 2018-12-18)
PROC: 0DB58ZX Excision of Esophagus, Via Natural or Artificial Opening Endoscopic, Diagnostic (ICD-10-PCS; 2018-12-18)
PROC: 30233R1 Transfusion of Nonautologous Platelets into Peripheral Vein, Percutaneous Approach (ICD-10-PCS; 2018-12-18)
PROC: 30233N1 Transfusion of Nonautologous Red Blood Cells into Peripheral Vein, Percutaneous Approach (ICD-10-PCS; 2018-12-18)
PROC: 0DJD8ZZ Inspection of Lower Intestinal Tract, Via Natural or Artificial Opening Endoscopic (ICD-10-PCS; 2018-12-20)
PROC: 0FT44ZZ Resection of Gallbladder, Percutaneous Endoscopic Approach (ICD-10-PCS; principal; 2018-12-23 13:18)
DX: K80.00 Calculus of gallbladder with acute cholecystitis without obstruction (principal); N39.0 Urinary tract infection, site not specified; E87.0 Hyperosmolality and hypernatremia; D62 Acute posthemorrhagic anemia; D53.9 Nutritional anemia, unspecified; E87.6 Hypokalemia; E53.8 Deficiency of other specified B group vitamins; B96.1 Klebsiella pneumoniae [K. pneumoniae] as the cause of diseases classified elsewhere; K64.1 Second degree hemorrhoids; K21.0 Gastro-esophageal reflux disease with esophagitis; K29.00 Acute gastritis without bleeding; I50.9 Heart failure, unspecified; K29.80 Duodenitis without bleeding; D50.9 Iron deficiency anemia, unspecified; Z87.440 Personal history of urinary (tract) infections; Z82.49 Family history of ischemic heart disease and other diseases of the circulatory system; Z83.3 Family history of diabetes mellitus; Z82.5 Family history of asthma and other chronic lower respiratory diseases; Z82.3 Family history of stroke; Z82.0 Family history of epilepsy and other diseases of the nervous system
CPT/HCPCS: 36415; 36430; 43239; 71045; 76700; 78226; 80048; 80053; 80061; 81001; 82150; 82270; 82550; 82607; 82728; 82746; 82948; 83036; 83540; 83690; 83874; 83880; 84132; 84484; 85014; 85018; 85025; 85027; 85045; 85060; 85610; 85730; 86850; 86900; 86901; 86922; 87077; 87088; 87186; 88304; 88305; 93005; 93306; A9537; G0378; J0696; J0885; J1364; J1644; J1756; J1940; J2001; J2175; J2370; J2405; J2704; J2710; J3010; J3420; J3480; J3490; J7030; J7070; J7120; P9016; P9034

== ENCOUNTER 2020-08-16 09:16 | Emergency (ER) | payer BC, OTHER ==
[~2020-08-16 09:16] MED LIST changes: +ASPI-1005 PO; +ATOR20TA65 PO; +IBUP-2070 PO; -OMEP-50 PO
[2020-08-16] MEDS ORDERED: MECLIZINE HCL 25 MG TABLET ONE (09:36)
[2020-08-16 10:02] LABS: BASOPHILS % (AUTO) 0.2 % (0.0-5.0); EOSINOPHILS % (AUTO) 1.9 % (0.0-8.0); HEMATOCRIT 42.9 % (36-48); LYMPHOCYTES % (AUTO) 23.8 % (21.0-51.0); MEAN CORPUSCULAR HEMOGLOBIN 31.9 pg (27.0-33.0); MEAN CORPUSCULAR HGB CONC 32.2 g/dL (32.0-36.0); MEAN CORPUSCULAR VOLUME 99.1 fL (79-99); MONOCYTES % (AUTO) 4.4 % (3.0-13.0); NEUTROPHILS % (AUTO) 69.4 % (40.0-77.0); PLATELET COUNT (AUTO) 221 K/uL (130-400); RED BLOOD CELL COUNT(AUTO) 4.33 MIL/uL (4.00-5.50); RED CELL DISTRIBUTION WIDTH 13.2 % (11.0-15.5); WHITE BLOOD COUNT (AUTO) 9.2 K/uL (4.8-10.8)
[2020-08-16 10:06] LABS: CREATININE 0.8 mg/dL (0.5-1.5); POTASSIUM 3.3 mmol/L (3.5-5.1)
[2020-08-16 10:10] LABS: ALBUMIN 3.9 g/dL (3.5-5.0); BILIRUBIN,TOTAL 0.6 mg/dL (0.2-1.0); TOTAL PROTEIN, SERUM 8.1 g/dL (6.0-8.3)
[2020-08-16 10:19] LABS: APPEARANCE,URINE Clear (CLEAR); BILIRUBIN,URINE Negative (NEGATIVE); COLOR,URINE Yellow (YELLOW); GLUCOSE, URINE (UA) Negative (NEGATIVE); KETONES,URINE Negative (NEGATIVE); LEUKOCYTE ESTERASE ,URINE Trace (NEGATIVE); NITRATE,URINE Negative (NEGATIVE); OCCULT BLOOD,URINE Negative (NEGATIVE); PROTEIN,URINE Negative (NEGATIVE)
[2020-08-16 10:44] LABS: BACTERIA,URINE Few /HPF (None Seen); RBC,URINE None Seen /HPF (0-1)
== END 2020-08-16 10:55 | disposition home or self-care (01) ==
LOC: EDH 09:16
DX: H81.393 Other peripheral vertigo, bilateral (principal); H65.193 Other acute nonsuppurative otitis media, bilateral; Z90.49 Acquired absence of other specified parts of digestive tract
CPT/HCPCS: 36415; 71045; 80053; 81001; 84484; 85025; 93005

== ENCOUNTER 2023-08-24 19:07 | Emergency (ER) | payer BC, OTHER ==
[2023-08-24 19:55] LABS: BASOPHILS # (AUTO) 0.02 K/uL (0.00-0.20); BASOPHILS % (AUTO) 0.2 % (0.0-5.0); HEMATOCRIT 37.5 % (36-48); IMMATURE GRANULOCYTE ABSOLUTE 0.06 K/uL (0-1); LYMPHOCYTES # (AUTO) 1.2 K/uL (1.0-4.8); MEAN CORPUSCULAR HEMOGLOBIN 35.3 pg (27.0-33.0); MEAN CORPUSCULAR HGB CONC 33.3 g/dL (32.0-36.0); MEAN CORPUSCULAR VOLUME 105.9 fL (79-99); MONOCYTES # (AUTO) 0.4 K/uL (0.1-1.0); MONOCYTES % (AUTO) 3.6 % (3.0-13.0); NEUTROPHILS # (AUTO) 8.9 K/uL (1.8-7.7); NEUTROPHILS % (AUTO) 84.6 % (40.0-77.0); PLATELET COUNT (AUTO) 165 K/uL (130-400); RED BLOOD CELL COUNT(AUTO) 3.54 MIL/uL (4.00-5.50); RED CELL DISTRIBUTION WIDTH 14.1 % (11.0-15.5); WHITE BLOOD COUNT (AUTO) 10.5 K/uL (4.8-10.8)
[2023-08-24] MEDS: ONDANSETRON 4MG INJ IVP ONE (20:11)
[2023-08-24] MEDS: 0.9%NACL 1000ML 1,000 ML IV ONE (20:11)
[2023-08-24] MEDS: PANTOPRAZOLE 40 MG/VIAL IVP ONE (20:11)
[2023-08-24 20:15] LABS: ALBUMIN 3.3 g/dL (3.5-5.0); BILIRUBIN,TOTAL 0.8 mg/dL (0.2-1.0); TOTAL PROTEIN, SERUM 7.3 g/dL (6.0-8.3)
[2023-08-24 20:24] LABS: POTASSIUM 2.9 mmol/L (3.5-5.1)
[2023-08-24 20:31] VITALS: TEMP 100
[2023-08-24] MEDS: ACETAMINOPHEN 500 MG TABLET PO ONE (20:31)
[2023-08-24] MEDS: POTASSIUM BICARB/CIT AC 25 MEQ TABLET.EFF PO ONE (20:31)
[2023-08-24 20:41] LABS: MAGNESIUM 1.4 mg/dL (1.80-2.40)
[2023-08-24 20:57] LABS: APPEARANCE,URINE CLOUDY (CLEAR); BILIRUBIN,URINE NEGATIVE (NEGATIVE); COLOR,URINE LIGHT-YELLOW (YELLOW); GLUCOSE, URINE (UA) NEGATIVE (NEGATIVE); KETONES,URINE NEGATIVE (NEGATIVE); LEUKOCYTE ESTERASE ,URINE 500 Leu/uL (NEGATIVE); NITRATE,URINE NEGATIVE (NEGATIVE); PROTEIN,URINE NEGATIVE (NEGATIVE); UROBILINOGEN,URINE 0.2 mg/dL (0.2-1.0)
[2023-08-24 20:58] LABS: ADD UA MICROSCOPIC YES
[2023-08-24 21:01] LABS: BACTERIA,URINE MOD /HPF (None Seen); MUCUS,URINE RARE LPF (None Seen); OTHER CASTS, URINE 2 /LPF (None Seen); SQUAMOUS EPITHELIAL CELL,UR FEW /HPF (0-2); WBC CLUMP RARE /HPF (0-1)
[2023-08-24] MEDS: CEFTRIAXONE 1G VIAL IVPB ONE (21:40)
[2023-08-24] MEDS ORDERED: SULF1TAB42 PO (22:30)
[2023-08-24 22:44] VITALS: BP 116/58; PULSE 72; RESP 16; O2SAT 97
== END 2023-08-24 22:43 | disposition home or self-care (01) ==
LOC: EDH 19:07
DX: N39.0 Urinary tract infection, site not specified (principal); Z79.82 Long term (current) use of aspirin; Z79.899 Other long term (current) drug therapy
CPT/HCPCS: 99285; 96365; 96375; 71045; 96361; 82550; 83735; 84484; 80053; 83690; 85025; 87077; 87088; 87186; 81001; 36415; 93005; J7030; J0696; J2405; C9113